=== PATIENT | female | born 1970 | race African-American/Black ===

== ENCOUNTER 2016-12-19 16:11 | Emergency (ER) | payer OTHER, SELFPAY | END 2016-12-19 17:08 | disposition home or self-care (01) | LOC: BURERS 16:11 | DX: J01.90 Acute sinusitis, unspecified (principal) | CPT/HCPCS: 99283 ==

== ENCOUNTER 2020-11-22 15:37 | Emergency (ER) | payer SELFPAY ==
[2020-11-22] MEDS ORDERED: Fluorescein Opthalmic Strip ONE (15:45)
[2020-11-22] MEDS ORDERED: Tetracaine 0.5% PF 4 ML BOT ONE (15:45)
[2020-11-22] MEDS ORDERED: Erythromycin Base 0.5% Ophth Oint 3.5 gm Tube ONE (15:58)
[2020-11-22] MEDS ORDERED: Boostrix 0.5 ML (Tdap) VIAL ONE (15:58)
== END 2020-11-22 16:08 | disposition home or self-care (01) ==
LOC: BURERS 15:37
DX: S05.02XA Injury of conjunctiva and corneal abrasion without foreign body, left eye, initial encounter (principal); X58.XXXA Exposure to other specified factors, initial encounter
CPT/HCPCS: 90471; 90715

== ENCOUNTER 2022-03-11 16:24 | Outpatient (CLI) | payer OTHER | END 2022-03-11 16:25 | disposition home or self-care (01) | LOC: BURRAD 16:24 | PROVIDERS: ATTEND Physician Assistant | DX: M54.50 Low back pain, unspecified (principal) | CPT/HCPCS: 72100 ==